=== PATIENT | male | born 1955 | race Caucasian/White ===

== ENCOUNTER 2021-02-15 10:41 | Inpatient (IN) | payer OTHER ==
[2021-02-15] VITALS (8 sets, daily range): BP systolic 104–126; BP diastolic 63–93
[~2021-02-15] VITALS: Ht 177.8 cm; Wt 96.4 kg
[2021-02-15] MEDS: HEPARIN 25,000UTS/250ML PREMIX 250 ML IV PRN ×2 (10:35→20:53)
[2021-02-15] MEDS ORDERED: OMEP40CA45 PO (11:21)
[2021-02-15] MEDS ORDERED: SIMV80TA17 PO (11:21)
[2021-02-15] MEDS ORDERED: LOSA100T14 PO (11:21)
[2021-02-15] MEDS ORDERED: HYDR50TA9 PO (11:21)
[2021-02-15] MEDS ORDERED: OLAN5TAB9 PO (11:21)
[2021-02-15] MEDS ORDERED: DULO60CA6 PO (11:21)
[2021-02-15] MEDS: IV NORMAL SALINE 1000ML BAG 1,000 ML IV SCH ×2 (11:30→20:50)
[2021-02-15] MEDS ORDERED: HEPARIN for IV BOLUS 10,000 UNIT/10 ML VIAL. IV PRN ×2 (11:30)
[2021-02-15] MEDS ORDERED: ONDANSETRON PF 4 MG/2 ML VIAL. IVP PRN (11:30)
[2021-02-15] MEDS ORDERED: BISACODYL 10 MG SUPP.RECT. PR PRN (11:30)
[2021-02-15] MEDS ORDERED: CALCIUM CARBONATE 500 MG TAB.CHEW PO PRN (11:30)
[2021-02-15] MEDS ORDERED: MAG HYDROX/ALUMINUM HYD/SIMETH 30 ML ORAL.SUSP PO PRN (11:30)
[2021-02-15] MEDS ORDERED: HYDROcodone/APAP 5/325MG 1 TAB TABLET PO PRN (11:30)
[2021-02-15] MEDS ORDERED: ACETAMINOPHEN 325 MG TABLET. PO PRN (11:30)
[2021-02-15] MEDS ORDERED: 0.9 % SODIUM CHLORIDE 10 ML DISP.SYRIN. IV PRN (11:30)
--- NOTE | 2021-02-15 12:51 | PDOC1 ---
History and Physical Date of Admission Date of Admission DATE: 02/15/21 TIME: 12:36 Identification/Chief Complaint Chief Complaint SHORTNESS OF BREATH X 2 DAY, SEEN IN ER History of Present Illness History of Present Illness 65 YR OLD MALE WITH ACUTE SADDLE PE DX [place] [facility] TODAY, notes SOA X 2 DAYS WITH CHEST TIGHTNESS Transfer here for higher level of care had 2nd moderna vaccine this Thursday DR Pinto consulted for possible catheter thrombolysis CTA POS FOR LARGE EMBOLUS had partial colon resection nov 2020 [facility] Past Medical History Past Medical History hyperlipidemia obesity GERD COLON POLYP Colon 10 cm resection nov 2020 due to polyp, path benign BIPOLAR DISORDER NO ETOH, TOBACCO, 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 AAA Cardiovascular: HTN, Hyperlipidemia GI: GERD, Other (polyp) Heme/Onc: No pertinent hx Psych: Anxiety, Bipolar Infectious disease: No pertinent hx Renal/: No pertinent hx Endocrine: No pertinent hx Family History Family History: High Cholestrol, Hypertension Social History Smoke: No ALCOHOL: none Drugs: None Current Medications Current Medications Current Medications Acetaminophen (Tylenol) 650 mg PRN Q6HRS PRN PO Headaches, Temp > 101.5'; Start 02/15/21 at 11:30 Lorazepam (Ativan Inj) 0.5 mg PRN Q6HRS PRN IVP ANXIETY / AGITATION; Start 02/15/21 at 11:30 Ondansetron HCl (Zofran) 4 mg PRN Q6HRS PRN IVP NAUSEA/VOMITING; Start 02/15/21 at 11:30 Al Hydroxide/Mg Hydroxide (Mylanta Plus Xs) 30 ml PRN Q3HRS PRN PO HEARTBURN / GAS; Start 02/15/21 at 11:30 Calcium Carbonate/ Glycine (Tums) 500 mg PRN Q3HRS PRN PO HEARTBURN / GAS; Start 02/15/21 at 11:30 Famotidine (Pepcid Vial) 20 mg BID IVP ; Start 02/15/21 at 21:00 Info (Icu Electrolyte Protocol) 1 ea DAILY MC ; Start 02/16/21 at 09:00 Sodium Chloride (Normal Saline Flush) 3 ml QSHIFT PRN IV AFTER MEDS AND BLOOD DRAWS; Start 02/15/21 at 11:30 Sodium Chloride 1,000 ml @ 100 mls/hr Q10H IV Last administered on 02/15/21at 11:30; Start 02/15/21 at 11:30 Acetaminophen/ Hydrocodone Bitart (Lortab 5/325) 1 tab PRN Q4HRS PRN PO MILD PAIN, 2ND CHOICE; Start 02/15/21 at 11:30 Docusate Sodium (Colace) 100 mg BID PO ; Start 02/15/21 at 21:00 Bisacodyl (Dulcolax Supp) 10 mg PRN DAILY PRN [place] CONSTIPATION; Start 02/15/21 at 11:30 Heparin Sodium/ Dextrose 250 ml @ 0 mls/hr CONT PRN IV PER PROTOCOL; Start 02/15/21 at 11:30 Heparin Sodium (Porcine) (Heparin Sodium) 2,900 unit PRN Q6HRS PRN IV FOR UFH LEVEL LESS THAN 0.2; Start 02/15/21 at 11:30 Heparin Sodium (Porcine) (Heparin Sodium) 1,450 unit PRN Q6HRS PRN IV FOR UFH LEVEL 0.2 - 0.29; Start 02/15/21 at 11:30 Active Scripts Active Reported Olanzapine 5 Mg Tablet 1 Tab PO QHS Simvastatin 80 Mg Tablet 80 Mg PO HS Omeprazole 40 Mg Capsule.dr 1 Cap PO DAILY Losartan Potassium 100 Mg Tablet 100 Mg PO DAILY Cymbalta (Duloxetine Hcl) 60 Mg Capsule.dr 1 Cap PO DAILY Hydrochlorothiazide Tablet (Hydrochlorothiazide) 50 Mg Tablet 25 Mg PO DAILY Allergies Allergies: Coded Allergies: Penicillins (Verified Allergy, Intermediate, 02/15/21) ROS Review of System 14 PT ROS OTHERWISE NEG General: No: Chills, Night Sweats, Fatigue, Malaise, Appetite, Other PSYCHOLOGICAL ROS: YES: Depression; No: Anxiety, Behavioral Disorder, Concentration difficultie, Decreased libido, Disorientation, Hallucinations, Hostility, Irritablity, Memory difficulties, Mood Swings, Obsessive thoughts, Physical abuse, Sexual abuse, Sleep disturbances, Suicidal ideation, Other Eyes: No Blurry vision, No Decreased vision, No Double vision, No Dry eyes, No Excessive tearing, No Eye Pain, No Itchy Eyes, No Loss of vision, No Photophobia, No Scotomata, No Uses contacts, No Uses glasses, No Other HEENT: No: Heacaches, Visual Changes, Hearing change, Nasal congestion, Nasal discharge, Oral lesions, Sinus pain, Sore Throat, Epistaxis, Sneezing, Snoring, Tinnitus, Vertigo, Vocal changes, Other ALLERGY AND IMMUNOLOGY: No: Hives, Insect Bite Sensitivity, Itchy/Watery Eyes, Nasal Congestion, Post Nasal Drip, Seasonal Allergies, Other Hematological and Lymphatic: YES: Blood Clots; No: Bleeding Problems, Blood Transfusions, Brusing, Night Sweats, Pallor, Swollen Lymph Nodes, Other ENDOCRINE: No: Breast Changes, Galactorrhea, Hair Pattern Changes, Hot Flashes, Malaise/lethargy, Mood Swings, Palpitations, Polydipsia/polyuria, Skin Changes, Temperature Intolerance, Unexpected Weight Changes, Other Breast: No New/Changing Breast Lumps, No Nipple changes, No Nipple discharge, No Other Respiratory: YES: Shortness of breath, SOB with excertion; No: Cough, Hemoptysis, Orthopnea, Pleuritic Pain, Sputum Changes, Stridor, Tachypnea, Wheezing, Other Cardiovascular: yes Palpitations Gastrointestinal: No Nausea, No Vomiting, No Abdominal Pain, No Diarrhea, No Constipation, No Melena, No Hematochezia, No Other Genitourinary: No Dysuria, No Frequency, No Incontinence, No Hematuria, No Retention, No Discharge, No Urgency, No Pain, No Flank Pain, No Other, No , No , No , No , No , No , No Musculoskeletal: No Gait Disturbance, No Joint Pain, No Joint Stiffness, No Joint Swelling, No Muscle Pain, No Muscular Weakness, No Pain In:, No Swelling In:, No Other Neurological: No Behavorial Changes, No Bowel/Bladder ControlChng, No Confusion, No Dizziness, No Gait Disturbance, No Headaches, No Impaired Coord/balance, No Memory Loss, No Numbness/Tingling, No Seizures, No Speech Problems, No Tremors, No Visual Changes, No Weakness, No Other Skin: No Dry Skin, No Eczema, No Hair Changes, No Lumps, No Mole Changes, No Mottling, No Nail Changes, No Pruritus, No Rash, No Skin Lesion Changes, No Other, No Acne Physical Exam General: Alert, Oriented X3, Cooperative, No acute distress HEENT: Atraumatic, PERRLA, EOMI, Mucous membr. moist/pink Lungs: Clear to auscultation, Normal air movement Heart: S1S2, RRR, no thrills, no rubs, no gallops, no murmurs Breasts: Not examined Abdomen: Normal bowel sounds, Soft, No tenderness, No hepatosplenomegaly Rectal Exam: not examined PELVIC: Examination not indicated Extremities: No cyanosis, No edema Skin: No breakdown Neuro: Normal speech, Cranial nerves 3-12 NL Psych/Mental Status: Mental status NL, Mood NL VTE Prophylaxis Ordered VTE Prophylaxis Devices: No VTE Pharmacological Prophylaxi: Yes Assessment/Plan Assessment/Plan impression 1. ACUTE LARGE SADDLE PULMONARY EMBOLUS 2. Recent colectomy for colon polyp 3. GERD 4. Hyperlipidemia 5. NSTEMI plan admit ICU CONSULT DR PINTO CONSULT PULM Heparin drip protocol CONSULT CARDIOLOGY CONSIDER CATHETER DIRECTED THROMBOLYSIS 37 MIN CC TIME Justifications for Admission General Conditions Poss tachycardia?: Yes Justification for admission: Patient has tachycardia (> 100 beats per minute) which is not readily corrected by appropriate treatment within 12 to 24 hours. ACUTE PULMONARY EMBOLUS Other Justification CELINE KIM MD Feb 15, 2021 12:51
--- NOTE | 2021-02-15 13:37 | PDOC2 ---
ROSANA CALDERÓN ASSISTANT PLANT CONTROL OPERATOR 02/15/21 1337: CARDIAC CONSULT DATE OF CONSULT Date of Consult DATE: 02/15/21 TIME: 13:31 REASON FOR CONSULT Reason for Consult: Elevated troponin REFERRING PHYSICIAN Referring Physician: Fullbright SOURCE Source: Chart review, Patient HISTORY OF PRESENT ILLNESS HISTORY OF PRESENT ILLNESS This is a 65 yo male admitted for complains of SOA. This occurred suddenly the other day particularly with exertion. He also had some midchest pressure. No passing out, nausea vomiting or palpitations. These all started yesterday. His troponin was mildlly elevated as well at [facility] and then transferred here for pulmonary coverage as he was noted with large PE. Reports that he had a colectomy in 12/27/2020. No blood thinners given at that time according to him and stayed at the hospital for 2 days. When he came home his left calf started bothering him. This then progressed to the knee then to his groin. He had his moderna shot about 2 weeks ago and due for the next one on Thursday. No prior hx of VTE, CAD. No cardiac symptoms before yesterday. No prior stress test. He has HTN and HLP and takes meds for it. No recent falls or injury and no recent orthopedic surgery. No use of hormones. He ispresently CP free and no SOA. PAST MEDICAL HISTORY Cardiovascular: HTN Pulmonary: Asthma CENTRAL NERVOUS SYSTEM: Other (No pertinent history) GI: GERD, Other (colon tumor beinign) Heme/Onc: No pertinent hx Hepatobiliary: No pertinent hx Psych: No pertinent hx Musculoskeletal: Osteoarthritis Rheumatologic: No pertinent hx Infectious disease: No pertinent hx ENT: No pertinent hx Renal/: Benign prostatic enlarg., Other (nephrolithiasis) Endocrine: No pertinent hx Dermatology: Other (skin CA with removal) PAST SURGICAL HISTORY Past Surgical History: Colectomy (12/27/2020), Other (skin CA removal) FAMILY HISTORY Family History: Other (aaa father) SOCIAL HISTORY Smoke: No ALCOHOL: none Drugs: None Lives: with Family CURRENT MEDICATIONS CURRENT MEDICATIONS Current Medications Medications (Trade) Dose Ordered Sig/Willi Route PRN Reason Start Time Stop Time Status Last Admin Dose Admin Sodium Chloride 1,000 ml @ 100 mls/hr Q10H IV 02/15/21 11:30 02/15/21 11:30 ALLERGIES ALLERGIES: Coded Allergies: Penicillins (Verified Allergy, Intermediate, 02/15/21) ROS Review of System 14 point ROS evaluated with pertinent positives noted per HPI PHYSICAL EXAM General: Alert, Oriented X3, Cooperative, No acute distress HEENT: Atraumatic, Mucous membr. moist/pink Lungs: Clear to auscultation, Normal air movement Heart: Regular rate (SR no ectopies), Normal S1, Normal S2, No murmurs Abdomen: Soft, No tenderness Extremities: No cyanosis, No edema Skin: No breakdown, No significant lesion Neuro: Normal speech, Sensation intact Psych/Mental Status: Mental status NL, Mood NL MUSCULOSKELETAL: Osteoarthritic changes both hands VITALS/I&O VITALS/I&O: Vital Signs Date Time Temp Pulse Resp B/P (MAP) Pulse Ox O2 Delivery O2 Flow Rate FiO2 02/15/21 12:00 78 16 113/91 (98) 95 Room Air 02/15/21 11:00 98.6 98.6 ASSESSMENT/PLAN ASSESSMENT/PLAN 1. Saddle PE: hemodynamically stable. No arrhythmias, no SOA currently 2. NSTEMI: peaked at 0.1 due to above, likely RV ischemia. No acute EKG changes 3. HTN: controlled 4. HLP 5. Obesity 6. Recent colectomy 12/27/2020 with benign tumor then onset of LLE pain after DC 7. Recent firs shot of moderna Recommendations 1. Heparin ongoing. Defer anticoagulation to pulmonary 2. Continue home BP regimen and home statin. 3. LE venous doppler, TTE 4. Supportive care RY WATKINS MD 02/15/21 8040: CARDIAC CONSULT ASSESSMENT/PLAN ASSESSMENT/PLAN Patient seen and examined. Agree with STAFF NURSE ANESTHETIST's assessment and plan. NSTEMI probably demand ischemia 2D echo showed EF 50% with RV dilation Continue treatment for acute PE per pulm team We will consider ischemic evaluation as outpatient Thank you for your consultation ROSANA CALDERÓN APRN Feb 15, 2021 13:37 RY WATKINS MD Feb 15, 2021 18:57
--- NOTE | 2021-02-15 13:50 | PDOC ---
PULMONARY PROGRESS NOTES DATE: 02/15/21 TIME: 13:50 Vitals Vital Signs Date Time Temp Pulse Resp B/P (MAP) Pulse Ox O2 Delivery O2 Flow Rate FiO2 02/15/21 12:00 78 16 113/91 (98) 95 Room Air 02/15/21 11:00 98.6 98.6 Medications Active Scripts Medications Dose Route/Sig Max Daily Dose Days Date Category Olanzapine 5 Mg Tablet 1 Tab PO QHS 02/15/21 Reported Simvastatin 80 Mg Tablet 80 Mg PO HS 02/15/21 Reported Omeprazole 40 Mg Capsule.dr 1 Cap PO DAILY 02/15/21 Reported Losartan Potassium 100 Mg Tablet 100 Mg PO DAILY 02/15/21 Reported Cymbalta (Duloxetine Hcl) 60 Mg Capsule.dr 1 Cap PO DAILY 02/15/21 Reported Hydrochlorothiazide Tablet (Hydrochlorothiazide) 50 Mg Tablet 25 Mg PO DAILY 02/15/21 Reported Impression . Full consult dictated Acute pulmonary embolism hemodynamically stable no need for TPA Suspect left lower extremity DVT See my consult for detail LONNIE CHACON MD Feb 15, 2021 13:50
--- NOTE | 2021-02-15 14:29 | CONS ---
DATE OF CONSULTATION: 02/15/2021 ATTENDING PHYSICIAN: Trip Christopher MD. REASON FOR CONSULTATION: The patient is seen in Pulmonary consultation at the request of Dr. Christopher for saddle emboli. HISTORY OF PRESENT ILLNESS: The patient is a 65-year-old that on 12/27 underwent partial colon resection, laparoscopically. According to the patient, he has no malignancy, cytology was negative, pathology was negative. Yesterday, he woke up at 8:30 and had near syncopal episode with shortness of breath, unable to take in a deep breath. He also had some chest pain. Today, he presented and he had a CT angiogram at [facility], which revealed saddle emboli. The patient was transferred to [place] for further evaluation and management. The patient remains hemodynamically stable. He is on room air. He is breathing better. He is currently on IV heparin. I was asked to see him in consultation. The patient also recalls that he had left lower extremity calf pain and some upper thigh pain. He went hiking and apparently he had some soft tissue injury, which then progressed to the pain. There is no prior history of PE or DVT. FAMILY HISTORY: No family history of thrombophilia. REVIEW OF SYSTEMS: As indicated above, otherwise a 10-point system was reviewed and negative. SOCIAL HISTORY: He has never smoked. CURRENT MEDICATIONS: List was reviewed. ALLERGIES: TO PENICILLIN. PHYSICAL EXAMINATION: VITAL SIGNS: Stable. O2 saturation was greater than 92%. HEENT: Eyes: The sclerae were nonicteric. NECK: Jugular venous distention was not elevated. No lymphadenopathy. CHEST: Full expansion. LUNGS: Adequate flow with no wheezes. CARDIOVASCULAR: Regular rate and rhythm with S1, S2, no S3. ABDOMEN: Soft, nontender, nondistended. EXTREMITIES: No clubbing, cyanosis, no edema. Homans sign was negative. Upon visual inspection, there was no significant edema of the left leg. It did not appear to be bigger in comparison to the other leg. LABORATORY DATA: CT angiogram reviewed. EKG reviewed. Labs from [facility] reviewed. He did have an elevation of troponin. White count was normal. Hemoglobin and hematocrit were noted. D-dimer was 7.73. Electrolytes were noted. BUN and creatinine normal. Influenza screen was negative. IMPRESSION: 1. Acute pulmonary embolism. 2. Acute respiratory insufficiency and pleurisy, secondary to above. 3. Suspect left deep venous thrombosis, related to recent mild soft tissue trauma. 4. Recent laparoscopic partial colectomy. Biopsy results were negative for malignancy. PLAN: 1. Continue IV heparin. 2. Discharge home on Eliquis in 24-48 hours. 3. Bed rest for now. 4. Venous Dopplers of the lower extremities. DISCUSSION: Suspect the patient's DVT and PE may be related to soft tissue trauma, which he recently suffered hiking. In addition, it is certainly possible that this may be related to recent immobilization. He was hospitalized on 12/27/2020. For now, continue IV heparin. Home on Eliquis. Follow up in my office in 6 months with a repeat CT angiogram. Bed rest for now. No need for TPA. The patient is hemodynamically stable. LONNIE CHACON MD DR: ABBY/siobhan JOB#: [id number] / [id number]
--- NOTE | 2021-02-15 15:11 | RAD ---
EXAMINATION: US BILATERAL LOWEREXTREMITY VENOUS DOPPLER (LOWER EXTREMITY VENOUS ULTRASOUND) CLINICAL HISTORY: Pulmonary embolism TECHNIQUE: Sonographic grayscale images obtained of the bilateral lower extremity deep venous systems with color flow Doppler, compression, and augmentation techniques as indicated. Images obtained and stored in a permanent archive. COMPARISON: None FINDINGS: RIGHT: No evidence of absent flow or incompressibility within the common femoral vein, femoral vein, or popl iteal vein. Visualized calf veins appear patent on limited evaluation. LEFT: Nonocclusive thrombus distal femoral vein. No evidence of absent flow or incompressibility within the common femoral vein, proximal to mid femoral vein, or popliteal vein. Visualized calf veins appear p atent on limited evaluation. IMPRESSION: Nonocclusive thrombus left distal femoral vein. No evidence of right lower extremity DVT. Critical findings discussed with ICU nurseCarlos, at 02/15/2021 3:06 PM. Electronically signed by: Audie Parham DO (02/15/2021 3:09 PM) [id number]
[2021-02-15 15:36] LABS: CHOLESTEROL/HDL RATIO 2.8
--- NOTE | 2021-02-15 17:10 | CARD ---
MR#: [id number] Date of Study: 02/15/2021 Ordering Physician: ROSANA CALDERÓN, Referring Physician: ROSANA CALDERÓN, Tech: Cathie Grace, [facility] APPROVED REPORT EXAM: Two-dimensional and M-mode echocardiogram with Doppler and color Doppler. Other Information Quality : AverageHR: 76bpm INDICATION Dyspnea Pulmonary Effusion RISK FACTORS Hyperlipidemia 2D DIMENSIONS RVDd3.8 (2.9-3.5cm)Left Atrium(2D)2.6 (1.6-4.0cm) IVSd0.9 (0.7-1.1cm)Aortic Root(2D)3.6 (2.0-3.7cm) LVDd4.2 (3.9-5.9cm)LVOT Diameter2.1 (1.8-2.4cm) PWd1.0 (0.7-1.1cm)LVDs3.3 (2.5-4.0cm) FS (%) 22.9 %SV36.7 ml LVEF(%)46.3 (>50%) Aortic Valve AoV Peak Martinez.132.4cm/sAoV VTI24.9cm AO Peak GR.7.0mmHgLVOT VTI 18.99cm AO Mean GR.4mmHg Mitral Valve MV E Xwohweuj66.8cm/sMV DECEL FAXN282iy MV A Cpnxjdjt65.5cm/sE/A Ratio0.8 TDI Lateral E' P. V10.30cm/sMedial E' P. V8.82cm/s E/Lateral E'5.9E/Medial E'6.9 Tricuspid Valve TR P. Zypalrwf812km/sRAP LBBBKHDJ3ccLm TR Peak Gr.57dsEtBXNN40maYr Pulmonary Vein S1 Ctwcrtfo67.5cm/sS2 Wbkbguma74.13cm/s D2 Bmlgrfjm39.1cm/sPVa drggdsjm32tuzt LEFT VENTRICLE The left ventricle is normal size. There is normal left ventricular wall thickness. The left ventricu lar systolic function is llow normal. The Ejection Fraction is 50%. There is normal LV segmental wall motion. Transmitral Doppler flow pattern is Grade I-abnormal relaxation pattern. RIGHT VENTRICLE The right ventricle is moderately to severely dilated measuring 4.31 cm. The right ventricle is mildl y hypertrophied. Systolic function is mildly reduced. ATRIA The left atrium size is normal. The right atrium size is mild to moderately dilated. The interatrial septum is intact with no evidence for an atrial septal defect or patent foramen ovale as noted on 2-D or Doppler imaging. AORTIC VALVE The aortic valve is normal in structure and function. Doppler and Color Flow revealed no significant aortic regurgitation. There is no significant aortic valvular stenosis. Calculated aortic valve area is 3.12 cm2 with maximum pressure gradient of 8 mmHg and mean pressure gradient of 4 mmHg. MITRAL VALVE The mitral valve is normal in structure and function. There is no evidence of mitral valve prolapse. There is no mitral valve stenosis. Doppler and Color-flow revealed trace mitral regurgitation. TRICUSPID VALVE The tricuspid valve is normal in structure and function. Doppler and Color Flow revealed trace tricus pid regurgitation with an estimated PAP of 41 mmHg. There is no tricuspid valve stenosis. PULMONIC VALVE The pulmonic valve is not well visualized. Doppler and Color Flow revealed trace pulmonic valvular re gurgitation. GREAT VESSELS The aortic root is normal in size. The ascending aorta is borderline dilated measuring 3.6 cm. The IV C is normal in size and collapses >50% with inspiration. PERICARDIAL EFFUSION There is no evidence of significant pericardial effusion. Critical Notification Critical Value: No <Conclusion> The left ventricular systolic function is llow normal. The Ejection Fraction is 50%. There is normal LV segmental wall motion. Transmitral Doppler flow pattern is Grade I-abnormal relaxation pattern. The right ventricle is moderately to severely dilated measuring 4.31 cm. Trace mitral regurgitation. Trace tricuspid regurgitation with an estimated PAP of 41 mmHg. There is no evidence of significant pericardial effusion. Signed by : Naresh Chu, Electronically Approved : 02/15/2021 17:09:35
--- NOTE | 2021-02-15 18:45 | NUR ---
Patient transferred to in stable condition with belongings per bed. Report called to SANJAY Diego.
[2021-02-15] MEDS: FAMOTIDINE 20 MG/2 ML VIAL IVP SCH (20:53)
[2021-02-15] MEDS: DOCUSATE SODIUM 100 MG CAPSULE. PO SCH (20:53)
[2021-02-15] MEDS ORDERED: OLANZapine 5 MG TABLET PO SCH (21:00)
[2021-02-15] MEDS ORDERED: SIMVASTATIN 40 MG TABLET. PO SCH (21:00)
[2021-02-16] MEDS ORDERED: HYDR-2761 PO (01:26)
[2021-02-16] MEDS ORDERED: PRED20TA PO (01:26)
[2021-02-16] MEDS ORDERED: SULF500T36 PO (01:26)
[2021-02-16] MEDS ORDERED: ALPR0.254 PO (01:33)
[2021-02-16] MEDS ORDERED: DILT240C33 PO (01:33)
[2021-02-16] MEDS ORDERED: FURO20TA3 PO (01:33)
[2021-02-16] MEDS ORDERED: ACET500T68 PO (01:33)
[2021-02-16] MEDS ORDERED: AZAT50TA20 PO (01:39)
[2021-02-16] MEDS ORDERED: FLEC100T PO (01:39)
[2021-02-16] MEDS ORDERED: ASPI-630 PO (01:39)
[2021-02-16] MEDS ORDERED: DICY20TA3 PO (01:42)
[2021-02-16 03:22] VITALS: BP 121/71
[2021-02-16] MEDS: IV NORMAL SALINE 1000ML BAG 1,000 ML IV SCH (06:08)
--- NOTE | 2021-02-16 06:38 | EKG ---
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
[2021-02-16 07:00] VITALS: BP 121/78
[2021-02-16 07:25] LABS: BASO % 0 % (0-3); EOS # 0.2 x10^3/uL (0.0-0.7); EOS % 3 % (0-3); HEMATOCRIT 37.2 % (39.0-53.0); HEMOGLOBIN 12.6 g/dL (13.0-17.5); LYMPH # 1.5 x10^3/uL (1.0-4.8); LYMPH % 23 % (24-48); MEAN CORPUSCULAR HEMOGLOBIN 29 pg (25-35); MEAN CORPUSCULAR HGB CONC 34 g/dL (31-37); MEAN CORPUSCULAR VOLUME 87 fL (79-100); MONO # 0.5 x10^3/uL (0.0-1.1); MONO % 8 % (0-9); NEUT # 4.2 x10^3/uL (1.8-7.7); NEUT % 66 % (31-73); PLATELET COUNT 242 x10^3/uL (140-400); RED CELL DISTRIBUTION WIDTH 14.2 % (11.5-14.5); WHITE BLOOD COUNT 6.3 x10^3/uL (4.0-11.0)
[2021-02-16] MEDS ORDERED: PANTOPRAZOLE 40 MG TABLET.DR. PO SCH (07:30)
[2021-02-16 07:36] LABS: ALBUMIN 2.8 g/dL (3.4-5.0); ALBUMIN/GLOBULIN RATIO 0.8 (1.0-1.7); CALCIUM 8.2 mg/dL (8.5-10.1); CREATININE 1.1 mg/dL (0.7-1.3); GFR 67.6; POTASSIUM 3.6 mmol/L (3.5-5.1); TOTAL BILIRUBIN 0.4 mg/dL (0.2-1.0); TOTAL PROTEIN 6.4 g/dL (6.4-8.2)
--- NOTE | 2021-02-16 08:58 | PDOC ---
PULMONARY PROGRESS NOTES DATE: 02/16/21 TIME: 08:58 Subjective on RA denies sob cough cp Vitals Vital Signs Date Time Temp Pulse Resp B/P (MAP) Pulse Ox O2 Delivery O2 Flow Rate FiO2 02/16/21 07:00 98.1 69 16 121/78 (92) 96 Room Air 98.1 General: Alert HEENT: Other (nc at perrl ) Lungs: Clear Cardiovascular: S1, S2 Abdomen: Soft, Non-tender Neuro Exam: Alert Skin: Warm Labs Laboratory Tests Test 02/15/21 11:46 02/15/21 16:30 02/15/21 23:34 02/16/21 05:40 Troponin I Quantitative 0.098 ng/mL (0.000-0.055) Triglycerides Level 39 mg/dL (0-150) Cholesterol Level 146 mg/dL (0-200) LDL Cholesterol, Calculated 85 mg/dL (0-100) VLDL Cholesterol, Calculated 8 mg/dL (0-40) Non-HDL Cholesterol Calculated 93 mg/dL (0-129) HDL Cholesterol 53 mg/dL (40-60) Cholesterol/HDL Ratio 2.8 Heparin Anti-Xa Act, Unfractionated 0.81 IU/mL (0.30-0.70) 0.53 IU/mL (0.30-0.70) 0.43 IU/mL (0.30-0.70) White Blood Count 6.3 x10^3/uL (4.0-11.0) Red Blood Count 4.30 x10^6/uL (4.30-5.70) Hemoglobin 12.6 g/dL (13.0-17.5) Hematocrit 37.2 % (39.0-53.0) Mean Corpuscular Volume 87 fL (79-100) Mean Corpuscular Hemoglobin 29 pg (25-35) Mean Corpuscular Hemoglobin Concent 34 g/dL (31-37) Red Cell Distribution Width 14.2 % (11.5-14.5) Platelet Count 242 x10^3/uL (140-400) Neutrophils (%) (Auto) 66 % (31-73) Lymphocytes (%) (Auto) 23 % (24-48) Monocytes (%) (Auto) 8 % (0-9) Eosinophils (%) (Auto) 3 % (0-3) Basophils (%) (Auto) 0 % (0-3) Neutrophils # (Auto) 4.2 x10^3/uL (1.8-7.7) Lymphocytes # (Auto) 1.5 x10^3/uL (1.0-4.8) Monocytes # (Auto) 0.5 x10^3/uL (0.0-1.1) Eosinophils # (Auto) 0.2 x10^3/uL (0.0-0.7) Basophils # (Auto) 0.0 x10^3/uL (0.0-0.2) Sodium Level 140 mmol/L (136-145) Potassium Level 3.6 mmol/L (3.5-5.1) Chloride Level 103 mmol/L (98-107) Carbon Dioxide Level 29 mmol/L (21-32) Anion Gap 8 (6-14) Blood Urea Nitrogen 17 mg/dL (8-26) Creatinine 1.1 mg/dL (0.7-1.3) Estimated GFR (Cockcroft-Gault) 67.6 BUN/Creatinine Ratio 15 (6-20) Glucose Level 102 mg/dL (70-99) Calcium Level 8.2 mg/dL (8.5-10.1) Total Bilirubin 0.4 mg/dL (0.2-1.0) Aspartate Amino Transf (AST/SGOT) 19 U/L (15-37) Alanine Aminotransferase (ALT/SGPT) 33 U/L (16-63) Alkaline Phosphatase 100 U/L (46-116) Total Protein 6.4 g/dL (6.4-8.2) Albumin 2.8 g/dL (3.4-5.0) Albumin/Globulin Ratio 0.8 (1.0-1.7) Laboratory Tests Test 02/15/21 11:46 02/15/21 16:30 02/15/21 23:34 02/16/21 05:40 Troponin I Quantitative 0.098 ng/mL (0.000-0.055) Triglycerides Level 39 mg/dL (0-150) Cholesterol Level 146 mg/dL (0-200) LDL Cholesterol, Calculated 85 mg/dL (0-100) VLDL Cholesterol, Calculated 8 mg/dL (0-40) Non-HDL Cholesterol Calculated 93 mg/dL (0-129) HDL Cholesterol 53 mg/dL (40-60) Cholesterol/HDL Ratio 2.8 Heparin Anti-Xa Act, Unfractionated 0.81 IU/mL (0.30-0.70) 0.53 IU/mL (0.30-0.70) 0.43 IU/mL (0.30-0.70) White Blood Count 6.3 x10^3/uL (4.0-11.0) Red Blood Count 4.30 x10^6/uL (4.30-5.70) Hemoglobin 12.6 g/dL (13.0-17.5) Hematocrit 37.2 % (39.0-53.0) Mean Corpuscular Volume 87 fL (79-100) Mean Corpuscular Hemoglobin 29 pg (25-35) Mean Corpuscular Hemoglobin Concent 34 g/dL (31-37) Red Cell Distribution Width 14.2 % (11.5-14.5) Platelet Count 242 x10^3/uL (140-400) Neutrophils (%) (Auto) 66 % (31-73) Lymphocytes (%) (Auto) 23 % (24-48) Monocytes (%) (Auto) 8 % (0-9) Eosinophils (%) (Auto) 3 % (0-3) Basophils (%) (Auto) 0 % (0-3) Neutrophils # (Auto) 4.2 x10^3/uL (1.8-7.7) Lymphocytes # (Auto) 1.5 x10^3/uL (1.0-4.8) Monocytes # (Auto) 0.5 x10^3/uL (0.0-1.1) Eosinophils # (Auto) 0.2 x10^3/uL (0.0-0.7) Basophils # (Auto) 0.0 x10^3/uL (0.0-0.2) Sodium Level 140 mmol/L (136-145) Potassium Level 3.6 mmol/L (3.5-5.1) Chloride Level 103 mmol/L (98-107) Carbon Dioxide Level 29 mmol/L (21-32) Anion Gap 8 (6-14) Blood Urea Nitrogen 17 mg/dL (8-26) Creatinine 1.1 mg/dL (0.7-1.3) Estimated GFR (Cockcroft-Gault) 67.6 BUN/Creatinine Ratio 15 (6-20) Glucose Level 102 mg/dL (70-99) Calcium Level 8.2 mg/dL (8.5-10.1) Total Bilirubin 0.4 mg/dL (0.2-1.0) Aspartate Amino Transf (AST/SGOT) 19 U/L (15-37) Alanine Aminotransferase (ALT/SGPT) 33 U/L (16-63) Alkaline Phosphatase 100 U/L (46-116) Total Protein 6.4 g/dL (6.4-8.2) Albumin 2.8 g/dL (3.4-5.0) Albumin/Globulin Ratio 0.8 (1.0-1.7) Medications Active Scripts Medications Dose Route/Sig Max Daily Dose Days Date Category Olanzapine 5 Mg Tablet 1 Tab PO QHS 02/15/21 Reported Simvastatin 80 Mg Tablet 80 Mg PO HS 02/15/21 Reported Omeprazole 40 Mg Capsule.dr 1 Cap PO DAILY 02/15/21 Reported Losartan Potassium 100 Mg Tablet 100 Mg PO DAILY 02/15/21 Reported Cymbalta (Duloxetine Hcl) 60 Mg Capsule.dr 1 Cap PO DAILY 02/15/21 Reported Hydrochlorothiazide Tablet (Hydrochlorothiazide) 50 Mg Tablet 25 Mg PO DAILY 02/15/21 Reported Comments reviewed Nonocclusive thrombus left distal femoral vein. No evidence of right lower extremity DVT. Impression . IMPRESSION: 1. Acute pulmonary embolism. 2. Acute respiratory insufficiency and pleurisy, secondary to above. 3. DVt, related to recent mild soft tissue trauma. 4. Recent laparoscopic partial colectomy. Biopsy results were negative for malignancy. Plan . PLAN: 1. Continue IV heparin. 2. Discharge home on Eliquis 3. Venous Dopplers of the lower extremities, Nonocclusive thrombus left distal femoral vein. No evidence of right lower extremity DVT. DISCUSSION: Suspect the patient's DVT and PE may be related to soft tissue trauma, which he recently suffered hiking. In addition, it is certainly possible that this may be related to recent immobilization. He was hospitalized on 12/27/2020. may change to [facility] on Eliquis x 6 mo. Follow up in dr lorenzo office in 6 months with a repeat CT angiogram. discussed w TITA Hamm MD Feb 16, 2021 08:58
[2021-02-16] MEDS ORDERED: ELECTROLYTE (ICU) PROTOCOL. MC SCH (09:00)
[2021-02-16] MEDS ORDERED: LOSARTAN POTASSIUM 50 MG TABLET. PO SCH (09:00)
[2021-02-16] MEDS ORDERED: DULoxetine HCL 30 MG CAPSULE.DR PO SCH (09:00)
[2021-02-16] MEDS ORDERED: hydroCHLOROthiazide 25 MG TABLET PO SCH (09:00)
--- NOTE | 2021-02-16 09:07 | PDOC ---
PROGRESS NOTES Date of Service: DATE: 02/16/21 TIME: 09:07 Subjective Subjective Feeling better. No new complaints. Objective Objective Vital Signs Date Time Temp Pulse Resp B/P (MAP) Pulse Ox O2 Delivery O2 Flow Rate FiO2 02/16/21 07:00 98.1 69 16 121/78 (92) 96 Room Air 98.1 Intake and Output 02/16/21 07:00 Output Total 1300 ml Balance -1300 ml Output Urine Total 1300 ml Physical Exam Abdomen: Soft, No tenderness Heart: Regular rate (SR no ectopies), Normal S1, Normal S2, No murmurs Extremities: No cyanosis, No edema General: Alert, Oriented X3, Cooperative, No acute distress HEENT: Atraumatic, Mucous membr. moist/pink Lungs: Clear to auscultation, Normal air movement MUSCULOSKELETAL: Osteoarthritic changes both hands Neuro: Normal speech, Sensation intact Psych/Mental Status: Mental status NL, Mood NL Skin: No breakdown, No significant lesion Assessment Assessment 1. Acute saddle PE: hemodynamically stable. Telemetry did not show any sig nificant arrhythmias. Continue anticoagulation per pulmonary team. 2. NSTEMI: Most probably type II/demand ischemia. No acute EKG changes. 2D echo showed LVEF 50% with RV dilatation. We will consider ischemic evaluation as an outpatient. 3. HTN: controlled 4. HLP: Continue statins 5. Obesity 6. 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 Labs Laboratory Tests Test 02/15/21 11:46 02/15/21 16:30 02/15/21 23:34 02/16/21 05:40 Troponin I Quantitative 0.098 ng/mL (0.000-0.055) Triglycerides Level 39 mg/dL (0-150) Cholesterol Level 146 mg/dL (0-200) LDL Cholesterol, Calculated 85 mg/dL (0-100) VLDL Cholesterol, Calculated 8 mg/dL (0-40) Non-HDL Cholesterol Calculated 93 mg/dL (0-129) HDL Cholesterol 53 mg/dL (40-60) Cholesterol/HDL Ratio 2.8 Heparin Anti-Xa Act, Unfractionated 0.81 IU/mL (0.30-0.70) 0.53 IU/mL (0.30-0.70) 0.43 IU/mL (0.30-0.70) White Blood Count 6.3 x10^3/uL (4.0-11.0) Red Blood Count 4.30 x10^6/uL (4.30-5.70) Hemoglobin 12.6 g/dL (13.0-17.5) Hematocrit 37.2 % (39.0-53.0) Mean Corpuscular Volume 87 fL (79-100) Mean Corpuscular Hemoglobin 29 pg (25-35) Mean Corpuscular Hemoglobin Concent 34 g/dL (31-37) Red Cell Distribution Width 14.2 % (11.5-14.5) Platelet Count 242 x10^3/uL (140-400) Neutrophils (%) (Auto) 66 % (31-73) Lymphocytes (%) (Auto) 23 % (24-48) Monocytes (%) (Auto) 8 % (0-9) Eosinophils (%) (Auto) 3 % (0-3) Basophils (%) (Auto) 0 % (0-3) Neutrophils # (Auto) 4.2 x10^3/uL (1.8-7.7) Lymphocytes # (Auto) 1.5 x10^3/uL (1.0-4.8) Monocytes # (Auto) 0.5 x10^3/uL (0.0-1.1) Eosinophils # (Auto) 0.2 x10^3/uL (0.0-0.7) Basophils # (Auto) 0.0 x10^3/uL (0.0-0.2) Sodium Level 140 mmol/L (136-145) Potassium Level 3.6 mmol/L (3.5-5.1) Chloride Level 103 mmol/L (98-107) Carbon Dioxide Level 29 mmol/L (21-32) Anion Gap 8 (6-14) Blood Urea Nitrogen 17 mg/dL (8-26) Creatinine 1.1 mg/dL (0.7-1.3) Estimated GFR (Cockcroft-Gault) 67.6 BUN/Creatinine Ratio 15 (6-20) Glucose Level 102 mg/dL (70-99) Calcium Level 8.2 mg/dL (8.5-10.1) Total Bilirubin 0.4 mg/dL (0.2-1.0) Aspartate Amino Transf (AST/SGOT) 19 U/L (15-37) Alanine Aminotransferase (ALT/SGPT) 33 U/L (16-63) Alkaline Phosphatase 100 U/L (46-116) Total Protein 6.4 g/dL (6.4-8.2) Albumin 2.8 g/dL (3.4-5.0) Albumin/Globulin Ratio 0.8 (1.0-1.7) Medications Current Medications Acetaminophen (Tylenol) 650 mg PRN Q6HRS PRN PO Headaches, Temp > 101.5'; Start 02/15/21 at 11:30 Acetaminophen/ Hydrocodone Bitart (Lortab 5/325) 1 tab PRN Q4HRS PRN PO MILD PAIN, 2ND CHOICE; Start 02/15/21 at 11:30 Al Hydroxide/Mg Hydroxide (Mylanta Plus Xs) 30 ml PRN Q3HRS PRN PO HEARTBURN / GAS; Start 02/15/21 at 11:30 Bisacodyl (Dulcolax Supp) 10 mg PRN DAILY PRN [place] CONSTIPATION; Start 02/15/21 at 11:30 Calcium Carbonate/ Glycine (Tums) 500 mg PRN Q3HRS PRN PO HEARTBURN / GAS; Start 02/15/21 at 11:30 Docusate Sodium (Colace) 100 mg BID PO Last administered on 02/15/21at 20:53; Start 02/15/21 at 21:00 Duloxetine HCl (Cymbalta) 60 mg DAILY PO ; Start 02/16/21 at 09:00 Famotidine (Pepcid Vial) 20 mg BID IVP Last administered on 02/15/21at 20:53; Start 02/15/21 at 21:00 Heparin Sodium (Porcine) (Heparin Sodium) 1,450 unit PRN Q6HRS PRN IV FOR UFH LEVEL 0.2 - 0.29; Start 02/15/21 at 11:30 Heparin Sodium (Porcine) (Heparin Sodium) 2,900 unit PRN Q6HRS PRN IV FOR UFH LEVEL LESS THAN 0.2; Start 02/15/21 at 11:30 Heparin Sodium/ Dextrose 250 ml @ 0 mls/hr CONT PRN IV PER PROTOCOL Last administered on 02/15/21at 20:53; Start 02/15/21 at 11:30 Hydrochlorothiazide (Hydrodiuril) 25 mg DAILY PO ; Start 02/16/21 at 09:00 Info (Icu Electrolyte Protocol) 1 ea DAILY MC ; Start 02/16/21 at 09:00 Lorazepam (Ativan Inj) 0.5 mg PRN Q6HRS PRN IVP ANXIETY / AGITATION; Start 02/15/21 at 11:30 Losartan Potassium (Cozaar) 100 mg DAILY PO ; Start 02/16/21 at 09:00 Olanzapine (ZyPREXA) 5 mg QHS PO Last administered on 02/15/21at 20:53; Start 02/15/21 at 21:00 Ondansetron HCl (Zofran) 4 mg PRN Q6HRS PRN IVP NAUSEA/VOMITING; Start 02/15/21 at 11:30 Pantoprazole Sodium (Protonix) 40 mg DAILYAC PO Last administered on 02/16/21at 06:08; Start 02/16/21 at 07:30 Simvastatin (Zocor) 80 mg QHS PO Last administered on 02/15/21at 20:53; Start 02/15/21 at 21:00 Sodium Chloride 1,000 ml @ 100 mls/hr Q10H IV Last administered on 02/16/21at 06:08; Start 02/15/21 at 11:30 Sodium Chloride (Normal Saline Flush) 3 ml QSHIFT PRN IV AFTER MEDS AND BLOOD DRAWS; Start 02/15/21 at 11:30 Vitals/I & O Vital Sign - Last 24 Hours 02/15/21 02/15/21 02/15/21 02/15/21 11:00 11:15 12:00 13:00 Temp 98.6 98.6 Pulse 82 78 84 Resp 16 16 18 B/P (MAP) 126/93 (104) 113/91 (98) 112/84 (93) Pulse Ox 97 95 95 O2 Delivery Room Air Room Air Room Air Room Air 02/15/21 02/15/21 02/15/21 02/15/21 14:00 15:00 19:06 19:30 Temp 98.1 98.5 98.1 98.5 Pulse 82 82 80 75 Resp 18 18 18 18 B/P (MAP) 125/92 (103) 119/80 (93) 117/82 (94) 117/80 (92) Pulse Ox 96 96 97 94 O2 Delivery Room Air Room Air Room Air Room Air 02/15/21 02/15/21 02/16/21 02/16/21 20:00 22:49 03:22 07:00 Temp 97.9 98.4 98.1 97.9 98.4 98.1 Pulse 77 66 69 Resp 18 16 16 B/P (MAP) 104/63 (77) 121/71 (88) 121/78 (92) Pulse Ox 91 95 96 O2 Delivery Room Air Room Air Room Air Room Air Intake and Output 02/15/21 02/15/21 02/16/21 15:00 23:00 07:00 Output Total 300 ml 400 ml 600 ml Balance -300 ml -400 ml -600 ml RY WATKINS MD Feb 16, 2021 09:07
[2021-02-16] MEDS: FAMOTIDINE 20 MG/2 ML VIAL IVP SCH (09:49)
[2021-02-16] MEDS: DOCUSATE SODIUM 100 MG CAPSULE. PO SCH (09:49)
--- NOTE | 2021-02-16 10:59 | DISCH ---
DISCHARGE INSTRUCTIONS Condition on Discharge Condition on Discharge: Stable Activity After Discharge Activity Instructions for Disc: Resume previous activity Lifting Instructions after Dis: Do not lift >10 pounds Exercise Instruction after Dis: Walk 30 min, 3 x per week Driving Instructions after Dis: Do not drive today Weight Bearing Status after Di: As tolerated Diet after Discharge Diet after Discharge: Cardiac Follow-Up Follow up with: PCP within 2 weeks of discharge Follow Up With: Pulmonology as soon as possible BARBARA THOMAS MD Feb 16, 2021 10:59
[2021-02-16 11:00] VITALS: BP 130/89
[2021-02-16] MEDS ORDERED: ANTI-COAG MONITOR BY PHARMACY. MC PRN (11:00)
[2021-02-16] MEDS: APIXABAN 5 MG TABLET. PO SCH ×2 (13:52→18:35)
[2021-02-16 15:00] VITALS: BP 124/78
[2021-02-16] MEDS ORDERED: APIX5TAB PO ×2 (17:46→17:51)
--- NOTE | 2021-02-16 21:00 | NUR ---
Patient discharged home at approximately 1845. Discharge instructions/education provided to patient and a copy given. Patient verbalized understanding of instructions. All belongings taken home with patient
--- NOTE | 2021-02-18 17:33 | PDOC3 ---
[facility]-Discharge Summary Date of Admission: Date of Admission: Feb 15, 2021 Date of Discharge: Date of Discharge: Feb 16, 2021 Discharge Diagnosis: Discharge Diagnosis: 1. ACUTE LARGE SADDLE PULMONARY EMBOLUS 2. Recent colectomy for colon polyp 3. GERD 4. Hyperlipidemia 5. NSTEMI Hospital Course: Hospital Course: By day of discharge patient was clinically stable without any shortness of breath. he was transitioned off of Heparin gtt and started on Eliquis. No home O2 needed. 65 YR OLD MALE WITH ACUTE SADDLE PE DX [place] TODAY, notes SOA X 2 DAYS WITH CHEST TIGHTNESS Transfer here for higher level of care had 2nd moderna vaccine this Thursday DR Sullivan consulted for possible catheter thrombolysis CTA POS FOR LARGE EMBOLUS had partial colon resection nov 2020 [facility] Activity: Activity: Resume previous activity Medications: Home Meds Reported Medications Apixaban (ELIQUIS) 5 Mg Tablet, 5 MG PO BID for PE, #60 TAB 02/16/21 Apixaban (ELIQUIS) 5 Mg Tablet, 10 MG PO BID for PE for 7 Days, #28 TAB 02/16/21 Olanzapine (OLANZAPINE) 5 Mg Tablet, 1 TAB PO QHS for bipolar, #30 TAB 02/15/21 Simvastatin (SIMVASTATIN) 80 Mg Tablet, 80 MG PO HS for FOR CHOLESTEROL, #30 TAB 0 Refills 02/15/21 Omeprazole (OMEPRAZOLE) 40 Mg Capsule.dr, 1 CAP PO DAILY for gerd, #30 CAP 3 Refills 02/15/21 Losartan Potassium (LOSARTAN POTASSIUM) 100 Mg Tablet, 100 MG PO DAILY for HYPERTENSION, TAB 02/15/21 Duloxetine Hcl (CYMBALTA) 60 Mg Capsule.dr, 1 CAP PO DAILY for antidepressant, #90 CAP 3 Refills 02/15/21 Hydrochlorothiazide (HYDROCHLOROTHIAZIDE TABLET) 50 Mg Tablet, 25 MG PO DAILY for DIURETIC, TAB 0 Refills 02/15/21 Discontinued Reported Medications Dicyclomine Hcl (DICYCLOMINE HCL) 20 Mg Tablet, 1 TAB PO TID for ABDOMINAL PAIN, #30 TAB 1 Refill 02/16/21 Aspirin (ASPIRIN) 81 Mg Tab.chew, 1 TAB PO DAILY for NSAID , #30 TAB 3 Refills 02/16/21 Azathioprine (IMURAN) 50 Mg Tablet, 2 TAB PO DAILY for ULCERATIVE COLITIS for 30 Days, #60 TAB 0 Refills 02/16/21 Flecainide Acetate (FLECAINIDE ACETATE) 100 Mg Tablet, 1 TAB PO BID for HEART , #60 TAB 5 Refills 02/16/21 Alprazolam (ALPRAZOLAM) 0.25 Mg Tablet, 1 TAB PO HS for ANXIETY , #90 TAB 02/16/21 Diltiazem HCl (Diltiazem 24Hr Cd) 240 Mg Cap.er.24h, 1 CAP PO DAILY for AFIB for 30 Days, #30 CAP 0 Refills 02/16/21 Acetaminophen (ACETAMINOPHEN) 500 Mg Tablet, 1 TAB PO PRN Q6HRS PRN for pain or fever for 15 Days, #60 TAB 0 Refills 02/16/21 Furosemide (FUROSEMIDE) 20 Mg Tablet, 1 TAB PO DAILY for DIURETIC , #90 TAB 1 Refill 02/16/21 Sulfasalazine (SULFAZINE EC) 500 Mg Tablet.dr, 1 TAB PO TID for SULFA for 30 Days, #90 TAB 0 Refills 02/16/21 Prednisone (PREDNISONE) 20 Mg Tablet, 1 TAB PO DAILY for ULCERATIVE COLITIS , #5 TAB 02/16/21 Hydrocodone Bit/Acetaminophen (HYDROCODONE-APAP 5-325 ) 1 Tab Tablet, 1 TAB PO PRN Q6HRS PRN for PAIN, TAB 0 Refills 02/16/21 Scheduled Apixaban (Eliquis), 10 MG PO BID, (Reported) Apixaban (Eliquis), 5 MG PO BID, (Reported) Duloxetine Hcl (Cymbalta), 1 CAP PO DAILY, (Reported) Hydrochlorothiazide (Hydrochlorothiazide Tablet), 25 MG PO DAILY, (Reported) Losartan Potassium (Losartan Potassium), 100 MG PO DAILY, (Reported) Olanzapine (Olanzapine), 1 TAB PO QHS, (Reported) Omeprazole (Omeprazole), 1 CAP PO DAILY, (Reported) Simvastatin (Simvastatin), 80 MG PO HS, (Reported) Discontinued Medications Acetaminophen (Acetaminophen), 1 TAB PO PRN Q6HRS PRN for pain or fever, (Reported) Alprazolam (Alprazolam), 1 TAB PO HS, (Reported) Aspirin (Aspirin), 1 TAB PO DAILY, (Reported) Azathioprine (Imuran), 2 TAB PO DAILY, (Reported) Dicyclomine Hcl (Dicyclomine Hcl), 1 TAB PO TID, (Reported) Diltiazem HCl (Diltiazem 24Hr Cd), 1 CAP PO DAILY, (Reported) Flecainide Acetate (Flecainide Acetate), 1 TAB PO BID, (Reported) Furosemide (Furosemide), 1 TAB PO DAILY, (Reported) Hydrocodone Bit/Acetaminophen (Hydrocodone-Apap 5-325 ), 1 TAB PO PRN Q6HRS PRN for PAIN, (Reported) Prednisone (Prednisone), 1 TAB PO DAILY, (Reported) Sulfasalazine (Sulfazine Ec), 1 TAB PO TID, (Reported) Total Time: Total Time: Total time spent was 40 minutes in preparing scripts, discharge planning with SW and RN, and preparing this discharge summary. Patient seen and examined on day of discharge. Justicifation of Admission Dx: Justifications for Admission: Justification of Admission Dx: Yes Respiratory Failure: Severe Resp Distress BARBARA THOMAS MD Feb 18, 2021 17:33
== END 2021-02-16 18:45 | disposition home or self-care (01) | DRG 175 ==
LOC: 1 WEST ICU 10:41 → 2 NORTH 18:57
PROVIDERS: ADMIT Family Medicine; ATTEND Family Medicine
DX: I26.02 Saddle embolus of pulmonary artery with acute cor pulmonale (principal); I21.4 Non-ST elevation (NSTEMI) myocardial infarction; E78.5 Hyperlipidemia, unspecified; F41.9 Anxiety disorder, unspecified; M19.90 Unspecified osteoarthritis, unspecified site; K21.9 Gastro-esophageal reflux disease without esophagitis; F31.9 Bipolar disorder, unspecified; I11.9 Hypertensive heart disease without heart failure; J45.909 Unspecified asthma, uncomplicated; R06.89 Other abnormalities of breathing; E66.9 Obesity, unspecified; R09.1 Pleurisy; Z68.30 Body mass index [BMI] 30.0-30.9, adult; Z88.0 Allergy status to penicillin; Z79.01 Long term (current) use of anticoagulants; Z87.442 Personal history of urinary calculi; Z86.010 Personal history of colon polyps; Z87.19 Personal history of other diseases of the digestive system; Z90.49 Acquired absence of other specified parts of digestive tract; Z82.49 Family history of ischemic heart disease and other diseases of the circulatory system
CPT/HCPCS: 36415; 80053; 80061; 84484; 85025; 85520; 87040; 93005; 93306; 93970; J1644; J3490; J7030; G0378

== ENCOUNTER → 2021-06-03 | Outpatient (CLI) | payer OTHER ==
[~2021-06-03] MED LIST: ACET500T68 PO; ALPR0.254 PO; APIX5TAB PO; ASPI-630 PO; AZAT50TA20 PO; CONTRAST GIVEN. MC PRN; DICY20TA3 PO; DILT240C33 PO; DULO60CA6 PO; FLEC100T PO; FURO20TA3 PO; HYDR-2761 PO; HYDR50TA9 PO; IOHEXOL 350 MG/ML 100 ML VIAL. IV ONE; LOSA100T14 PO; OLAN5TAB9 PO; OMEP40CA7 PO; PRED20TA PO; SIMV80TA17 PO; SULF500T36 PO
--- NOTE | 2021-06-03 09:01 | RAD ---
EXAM: CT angiography of the chest with intravenous contrast. HISTORY: Pulmonary embolism follow-up. TECHNIQUE: Computed tomographic images of the chest were obtained following the administration of int ravenous contrast according to angiography protocol. Multiplanar reformatting was performed and three dimensional maximum intensity projection images were obtained. *One or more of the following individualized dose reduction techniques were utilized for this examina tion: 1. Automated exposure control. 2. Adjustment of the mA and/or kV according to patient size. 3. Use of iterative reconstruction technique. COMPARISON: 02/15/2021. FINDINGS: There has been resolution of the previously demonstrated subtle embolus with extension into the bilateral upper and lower lobe segmental and subsegmental pulmonary arteries. No residual ovaria n lesion is seen. The heart is normal in size. The aorta is normal in caliber. There is a stable waldo d nodule within the anterior mediastinum, measuring 1.8 cm in maximum dimension on coronal reformatte d images. There is no pneumothorax or pleural effusion. There is linear scarring or atelectasis along the right minor pleural fissure. There is right greater than left basilar and posterior dependent at electasis. There is no infiltrate or suspicious pulmonary nodule. There is no acute finding involving the visualized upper abdomen. There is no acute or suspicious osseous finding. IMPRESSION: 1. No acute thoracic finding. 2. Resolution of previously demonstrated pulmonary embolism. 3. Stable 1.8 cm nodule within the anterior mediastinum. This may be an exophytic thyroid nodule or p athologically enlarged lymph node. In the absence of studies prior to 02/15/2021 to assess long-term s tability, short-term CT follow-up in 3-6 months is recommended. This may be difficult to assess sonog raphically due to location. Electronically signed by: Aisha Loyd MD (06/03/2021 8:59 AM) [id number]
== END ==
LOC: CT 09:57
PROVIDERS: ATTEND Internal Medicine Pulmonary Disease
DX: I26.99 Other pulmonary embolism without acute cor pulmonale (principal); J98.11 Atelectasis
CPT/HCPCS: 71275; Q9967

== ENCOUNTER → 2021-07-08 | Outpatient (CLI) | payer OTHER ==
[~2021-07-08] MED LIST changes: -CONTRAST GIVEN. MC PRN; -IOHEXOL 350 MG/ML 100 ML VIAL. IV ONE; +OLAN5TAB67 PO; -OLAN5TAB9 PO
== END ==
LOC: LAB 07:44
PROVIDERS: ATTEND Internal Medicine Pulmonary Disease
DX: I26.99 Other pulmonary embolism without acute cor pulmonale (principal)
CPT/HCPCS: 81240; 83090; 85302; 85306; 85347; 85610; 86146; 86147